=== PATIENT | male | born 1990 | race Caucasian/White ===

== ENCOUNTER 2019-03-06 00:40 | Inpatient (IN) | payer OTHER ==
[~2019-03-06] VITALS: Ht 175.3 cm; Wt 84.2 kg
[2019-03-06] MEDS ORDERED: LORazepam 2 MG/ML VIAL IVP ONE ×2 (01:15→02:30)
[2019-03-06] MEDS ORDERED: MAGNESIUM SULFATE 2 GM, MVI, ADULT NO.1 WITH VIT K 10 ML, THIAMINE HCL 100 MG, FOLIC AC... IV ONE ×5 (01:15)
[2019-03-06 01:40] LABS: BASOPHILS % (AUTO) 0.2 % (0.0-2.0); EOSINOPHILS % (AUTO) 0.1 % (1.0-6.0); HEMATOCRIT 42.3 % (41-53); HEMOGLOBIN 14.6 g/dL (13.5-17.5); LYMPHOCYTES # (AUTO) 2.4 K/uL (1.0-4.8); LYMPHOCYTES % (AUTO) 17.4 % (22.0-44.0); MEAN CORPUSCULAR HEMOGLOBIN 30.3 pg (26.0-34.0); MEAN CORPUSCULAR HGB CONC 34.5 G/dL (31.0-37.0); MEAN CORPUSCULAR VOLUME 88 fL (80-100); MONOCYTES # (AUTO) 0.7 K/uL (0.1-1.0); MONOCYTES % (AUTO) 4.9 % (2.0-9.0); NEUTROPHILS # (AUTO) 10.6 K/uL (1.8-7.7); NEUTROPHILS % (AUTO) 77.4 % (40.0-70.0); PLATELET COUNT (AUTO) 359 K/uL (150-450); RED BLOOD CELL COUNT(AUTO) 4.82 MIL/uL (4.50-5.90); RED CELL DISTRIBUTION WIDTH 13.2 % (11.5-14.5)
[2019-03-06 01:51] LABS: ANION GAP 10 mmol/L (8-16); CALCIUM, TOTAL 9.6 mg/dL (8.8-10.5); CARBON DIOXIDE 27 mmol/L (22-29); CHLORIDE 101 mmol/L (98-107); CREATININE 0.96 mg/dL (0.60-1.30); GLOMERULAR FILTR. RATE CALC > 60 mL/min (>60); GLUCOSE,RANDOM 113 mg/dL (70-110); POTASSIUM 3.3 mmol/L (3.5-5.1); SODIUM SERUM 138 mmol/L (136-145); UREA NITROGEN, BLOOD 9 mg/dL (7-18)
[2019-03-06 02:16] LABS: ALANINE AMINOTRANSFERASE 13 U/L (12-78); ALBUMIN 4.2 g/dL (3.4-5.0); ALKALINE PHOSPHATASE 88 U/L (46-116); ASPARTATE AMINOTRANSFERASE 14 U/L (15-37); BILIRUBIN,TOTAL 0.5 mg/dL (0.1-1.0); CREATINE KINASE, TOTAL ONLY 83 U/L (39-308); LIPASE 131 U/L (73-393); TOTAL PROTEIN, SERUM 7.9 g/dL (6.4-8.2)
[2019-03-06 02:31] LABS: APPEARANCE,URINE CLEAR (CLEAR); BILIRUBIN,URINE NEGATIVE (NEGATIVE); GLUCOSE, URINE (UA) NEGATIVE (NEGATIVE); KETONES,URINE NEGATIVE (NEGATIVE); LEUKOCYTE ESTERASE ,URINE NEGATIVE (NEGATIVE); NITRATE,URINE NEGATIVE (NEGATIVE); OCCULT BLOOD,URINE NEGATIVE (NEGATIVE); PH,URINE 6.5 (5.0-8.0); PROTEIN,URINE NEGATIVE (NEGATIVE); UROBILINOGEN,URINE 0.2 mg/dL (<=1.0)
[2019-03-06 02:35] LABS: BACTERIA,URINE None Seen /HPF (None Seen); RBC,URINE None Seen /HPF (0-2); SQUAMOUS EPITHELIAL CELL,UR None Seen /LPF (None Seen); WBC,URINE None Seen /HPF (0-5)
[2019-03-06 02:37] LABS: AMPHET/METH SCREEN,URINE NEGATIVE (NEGATIVE); BARBITURATE SCREEN, URINE NEGATIVE (NEGATIVE); BENZODIAZEPINES SCREEN,URINE NEGATIVE (NEGATIVE); CANNABINOID SCREEN,URINE NEGATIVE (NEGATIVE); COCAINE SCREEN,URINE NEGATIVE (NEGATIVE); METHADONE SCREEN, URINE NEGATIVE (NEGATIVE); OPIATE SCREEN,URINE NEGATIVE (NEGATIVE); PHENCYCLIDINE SCREEN,URINE NEGATIVE (NEGATIVE)
[2019-03-06] MEDS ORDERED: POTASSIUM CHLORIDE 10% 40 MEQ/30 ML LIQUID UDCUP PO ONE (02:45)
[2019-03-06] MEDS ORDERED: ACETAMINOPHEN 325 MG TABLET PO PRN ×2 (02:45→04:30)
[2019-03-06] MEDS ORDERED: 0.9% SODIUM CHLORIDE 10 ML SYRINGE IVP PRN ×2 (02:45→04:30)
[2019-03-06] MEDS ORDERED: ONDANSETRON HCL 4 MG/2 ML VIAL IVP PRN ×2 (02:45→04:30)
[2019-03-06] MEDS ORDERED: GABAPENTIN 100 MG CAPSULE PO ONE (03:30)
[2019-03-06] MEDS ORDERED: KETOROLAC TROMETHAMINE 30 MG/ML VIAL IVP ONE (03:30)
[2019-03-06] MEDS ORDERED: LABETALOL HCL 5 MG/ML 20 ML VIAL IVP ONE (03:30)
[2019-03-06] MEDS ORDERED: POTASSIUM CHLORIDE 20 MEQ ER TABLET PO PRN ×2 (04:30)
[2019-03-06] MEDS ORDERED: MAGNESIUM HYDROXIDE SUSPENSION 30 ML UDCUP PO PRN (04:30)
[2019-03-06] MEDS ORDERED: POTASSIUM CHLORIDE 10% 40 MEQ/30 ML LIQUID UDCUP PO PRN ×2 (04:30)
[2019-03-06] MEDS ORDERED: POTASSIUM CHL 10 MEQ/WATER 50 ML IV PRN ×4 (04:30)
[2019-03-06] MEDS ORDERED: OxyCODONE HCL/ACETAMINOPHEN 5-325 MG TABLET PO PRN (04:30)
[2019-03-06 08:23] VITALS: BP 122/70
[2019-03-06] MEDS ORDERED: FAMOTIDINE 10 MG/ML 2 ML VIAL IVP SCH (09:00)
[2019-03-06] MEDS ORDERED: THIAMINE HCL 100 MG TABLET PO SCH (09:00)
[2019-03-06] MEDS ORDERED: DOCUSATE SODIUM 100 MG CAPSULE PO SCH (09:00)
[2019-03-06] MEDS ORDERED: FOLIC ACID 1 MG TABLET PO SCH (09:00)
[2019-03-06] MEDS ORDERED: MULTIVITAMINS, THERAPEUTIC TABLET PO SCH (09:00)
[2019-03-06] MEDS ORDERED: ChlordiazePOXIDE HCL 25 MG CAPSULE PO SCH ×2 (10:12→12:00)
[2019-03-06] MEDS ORDERED: SODIUM CHLORIDE 0.9% 1,000 ML IV ONE (10:50)
[2019-03-06] MEDS: NICOTINE 14 MG/24 HOUR PATCH TD SCH (10:59)
[2019-03-06] MEDS ORDERED: DOCUSATE SODIUM 100 MG CAPSULE PO PRN (11:30)
[2019-03-06 11:55] VITALS: BP 127/59
[2019-03-06] MEDS: LORazepam 2 MG/ML VIAL IVP PRN ×3 (12:22→23:10)
[2019-03-06 15:06] VITALS: BP 119/79
[2019-03-06] MEDS: ChlordiazePOXIDE HCL 25 MG CAPSULE PO SCH ×2 (15:32→22:07)
[2019-03-06] MEDS ORDERED: INFLUENZA VIRUS VACCINE QVS 2019-20 (3YR+)/PF 60 MCG/0.5 ML SYRINGE IM ONE (18:00)
[2019-03-06 20:13] VITALS: BP 145/89
[2019-03-06] MEDS: FAMOTIDINE 10 MG/ML 2 ML VIAL IVP SCH (20:56)
[2019-03-07 00:09] VITALS: BP 134/71
[2019-03-07] MEDS ORDERED: SODIUM CHLORIDE 0.9% 1,000 ML IV ONE (04:14)
[2019-03-07] MEDS: ChlordiazePOXIDE HCL 25 MG CAPSULE PO SCH ×4 (04:18→21:54)
[2019-03-07 04:43] VITALS: BP 146/70
[2019-03-07] MEDS: LORazepam 2 MG/ML VIAL IVP PRN ×4 (05:44→23:17)
[2019-03-07 06:29] LABS: BASOPHILS % (AUTO) 0.5 % (0.0-2.0); HEMATOCRIT 38.3 % (41-53); HEMOGLOBIN 13.5 g/dL (13.5-17.5); LYMPHOCYTES # (AUTO) 1.9 K/uL (1.0-4.8); LYMPHOCYTES % (AUTO) 21.1 % (22.0-44.0); MEAN CORPUSCULAR HEMOGLOBIN 31.3 pg (26.0-34.0); MEAN CORPUSCULAR HGB CONC 35.4 G/dL (31.0-37.0); MEAN CORPUSCULAR VOLUME 89 fL (80-100); MONOCYTES # (AUTO) 0.5 K/uL (0.1-1.0); MONOCYTES % (AUTO) 5.8 % (2.0-9.0); NEUTROPHILS # (AUTO) 6.5 K/uL (1.8-7.7); NEUTROPHILS % (AUTO) 71.6 % (40.0-70.0); PLATELET COUNT (AUTO) 309 K/uL (150-450); RED BLOOD CELL COUNT(AUTO) 4.33 MIL/uL (4.50-5.90); RED CELL DISTRIBUTION WIDTH 13.2 % (11.5-14.5)
[2019-03-07 06:52] LABS: ANION GAP 6 mmol/L (8-16); CALCIUM, TOTAL 8.8 mg/dL (8.8-10.5); CARBON DIOXIDE 29 mmol/L (22-29); CHLORIDE 102 mmol/L (98-107); CREATININE 0.93 mg/dL (0.60-1.30); GLOMERULAR FILTR. RATE CALC > 60 mL/min (>60); GLUCOSE,RANDOM 105 mg/dL (70-110); SODIUM SERUM 137 mmol/L (136-145); UREA NITROGEN, BLOOD 5 mg/dL (7-18)
[2019-03-07 07:38] VITALS: BP 138/74
[2019-03-07] MEDS: FAMOTIDINE 10 MG/ML 2 ML VIAL IVP SCH ×2 (08:42→21:55)
[2019-03-07] MEDS: NICOTINE 14 MG/24 HOUR PATCH TD SCH (08:43)
[2019-03-07 11:24] VITALS: BP 138/89
[2019-03-07] MEDS: OxyCODONE HCL/ACETAMINOPHEN 5-325 MG TABLET PO PRN ×2 (12:19→16:59)
[2019-03-07] MEDS: MORPHINE SULFATE 2 MG/ML SYRINGE IVP PRN ×2 (14:39→21:55)
[2019-03-07 15:54] VITALS: BP 152/78
[2019-03-07 19:40] VITALS: BP 135/73
[2019-03-08 00:10] VITALS: BP 137/88
[2019-03-08] MEDS: OxyCODONE HCL/ACETAMINOPHEN 5-325 MG TABLET PO PRN (01:47)
[2019-03-08] MEDS: ChlordiazePOXIDE HCL 25 MG CAPSULE PO SCH ×2 (04:42→11:09)
[2019-03-08] MEDS: MORPHINE SULFATE 2 MG/ML SYRINGE IVP PRN (04:47)
[2019-03-08 05:11] VITALS: BP 142/98
[2019-03-08 06:54] LABS: BASOPHILS % (AUTO) 0.4 % (0.0-2.0); EOSINOPHILS % (AUTO) 0.3 % (1.0-6.0); HEMATOCRIT 38.9 % (41-53); HEMOGLOBIN 13.5 g/dL (13.5-17.5); LYMPHOCYTES % (AUTO) 21.4 % (22.0-44.0); MEAN CORPUSCULAR HEMOGLOBIN 30.7 pg (26.0-34.0); MEAN CORPUSCULAR HGB CONC 34.7 G/dL (31.0-37.0); MEAN CORPUSCULAR VOLUME 88 fL (80-100); MONOCYTES # (AUTO) 0.5 K/uL (0.1-1.0); MONOCYTES % (AUTO) 5.7 % (2.0-9.0); NEUTROPHILS # (AUTO) 6.8 K/uL (1.8-7.7); NEUTROPHILS % (AUTO) 72.2 % (40.0-70.0); PLATELET COUNT (AUTO) 319 K/uL (150-450); RED BLOOD CELL COUNT(AUTO) 4.41 MIL/uL (4.50-5.90); RED CELL DISTRIBUTION WIDTH 13.3 % (11.5-14.5)
[2019-03-08 07:10] LABS: ANION GAP 9 mmol/L (8-16); CARBON DIOXIDE 27 mmol/L (22-29); CHLORIDE 103 mmol/L (98-107); GLOMERULAR FILTR. RATE CALC > 60 mL/min (>60); GLUCOSE,RANDOM 98 mg/dL (70-110); POTASSIUM 3.7 mmol/L (3.5-5.1); SODIUM SERUM 139 mmol/L (136-145); UREA NITROGEN, BLOOD 7 mg/dL (7-18)
[2019-03-08 08:10] VITALS: BP 136/61
[2019-03-08] MEDS: FAMOTIDINE 10 MG/ML 2 ML VIAL IVP SCH (08:32)
[2019-03-08] MEDS: NICOTINE 14 MG/24 HOUR PATCH TD SCH (09:00)
[2019-03-08] MEDS: LORazepam 2 MG/ML VIAL IVP PRN (11:10)
[2019-03-08 11:31] VITALS: BP 132/90
[2019-03-08] MEDS ORDERED: TRAM50TA4 PO (12:10)
== END 2019-03-08 12:25 | disposition home or self-care (01) | DRG 773 ==
LOC: EMS 00:41 → 5N 07:00
PROVIDERS: ADMIT Internal Medicine; ATTEND Internal Medicine
DX: F10.231 Alcohol dependence with withdrawal delirium (principal); F11.10 Opioid abuse, uncomplicated; E87.6 Hypokalemia; I10 Essential (primary) hypertension; F17.210 Nicotine dependence, cigarettes, uncomplicated; Y90.9 Presence of alcohol in blood, level not specified
CPT/HCPCS: 83735; 84132; 84145; 93005; 99291; G0480; J1885; J2060; J2270; J3411; J3475; J3490; J7030